=== PATIENT | male | born 1980 | race Caucasian/White ===

== ENCOUNTER → 2023-11-23 09:04 | Outpatient (BNVA) | payer OTHER, SELFPAY | PROVIDERS: Visit Provider Family Medicine | DX: F41.1 Generalized anxiety disorder (principal) | CPT/HCPCS: 80053; 80061; 84439; 84443; 85025 ==

== ENCOUNTER 2024-08-29 19:13 | Emergency (ER) | payer OTHER, SELFPAY ==
[2024-08-29 19:16] VITALS: BP 145/92; PULSE 118; RESP 18; TEMP 38.9; O2SAT 97; BMI 28.8
--- NOTE | 2024-08-29 19:38 | XRR_ITS ---
PROCEDURE INFORMATION: Exam: XR Chest Exam date and time: 08/29/2024 7:41 PM Age: 43 years old Clinical indication: Cough; Additional info: Cough, fever TECHNIQUE: Imaging protocol: Radiologic exam of the chest. Views: 1 view. COMPARISON: No relevant prior studies available. FINDINGS: Lungs: Unremarkable. No consolidation. Pleural spaces: Unremarkable. No pleural effusion. No pneumothorax. Heart/Mediastinum: Unremarkable. No cardiomegaly. Bones/joints: Unremarkable. XR/XR chest 1V portable [id number] IMPRESSION: No acute findings.
[2024-08-29 19:49] LABS: Hematocrit 40.3 % (37-53); Hemoglobin 13.40 g/dL (11.27-16.99); Mean Corpuscular HGB Conc 33.3 g/dL (30-55); Mean Corpuscular Hemoglobin 28.0 pg (27-33); Mean Corpuscular Volume 84.3 fl (82-101); Nucleated Red Blood Cells % 0 %; Platelet Count 259 10^3/cmm (157-399); Red Blood Count 4.78 10^6/uL (3.85-5.65); White Blood Count 3.85 10^3/uL (3.29-11.43)
[2024-08-29] MEDS: acetaminophen 1,000 MG/100 ML PIGGYBACK 400 MG IV (19:49)
--- NOTE | 2024-08-29 19:50 | ED_ITS ---
HPI - Fever 2 General: Chief Complaint: Fever Stated Complaint: fever body hurts cold chills bug bite on L buttox Time Seen by Provider: 08/29/24 19:33 History of Present Illness: 43-year-old man who presents emergency r oom with continued fevers. He was seen in urgent care and they thought maybe had a tick bite and they placed him on Bactrim 1 p.o. twice daily. This was about 3 days ago. He is continue to have fevers. He has a red area with a central black scar on his left buttock. This about 4 cm in diameter. This is not gotten any bigger. No necrosis. He does report he is had multiple tick bites. He has had some cough. He is febrile on presentation and tachycardic. Blood pressure stable. Related Data Previous Rx's ?Medication ?Instructions ?Recorded doxycycline monohydrate 100 mg 100 mg PO BID 10 days # 20 caps 08/29/24 capsule Allergies Allergy/AdvReac Type Severity Reaction Status Date / Time No Known Allergies Allergy Unverified 11/23/23 08:04 Review of Systems 2 Narrative: Constitutional symptoms: Negative except as documented in HPI. Skin symptoms: Negative except as documented in HPI. Eye symptoms: Negative except as documented in HPI. ENMT symptoms: Negative except as documented in HPI. Respiratory symptoms: Negative except as documented in HPI. Cardiovascular symptoms: Negative except as documented in HPI. Gastrointestinal symptoms: Negative except as documented in HPI. Genitourinary symptoms: Negative except as documented in HPI. Musculoskeletal symptoms: Negative except as documented in HPI. Neurologic symptoms: Negative except as documented in HPI. Psychiatric symptoms: Negative except as documented in HPI. Endocrine symptoms: Negative except as documented in HPI. PFSH ED 2 PFSH: Medical History (Updated 08/29/24 @ 20:26 by Dorys Zavala MD) RENETTA (generalized anxiety disorder) Family History (Updated 11/23/23 @ 08:08 by Janice Mesa LPN) Grandfather Diabetes Heart disease Cancer Renal cancer Aneurysm Grandfather No problems noted. Social History (Updated 11/23/23 @ 08:08 by Janice Mesa LPN) Smoking and tobacco/nicotine status: never used tobacco/nicotine Alcohol intake: current Alcohol intake frequency: few times a month Alcohol type: wine Substance/Drug Use: never Physical Exam 2 Narrative: EXAM NARRATIVE: General: Alert, no acute distress. Skin: Warm, dry. 5 cm raised warm erythematous area on the buttock with a central black eschar but no fluctuance. Head: Normocephalic, atraumatic. Neck: Supple, trachea midline. Eye: Extraocular movements are intact. Ears, nose, mouth and throat: mucosa moist. Cardiovascular: Regular, tachycardic, normal peripheral perfusion. Respiratory: Lungs are clear to auscultation, respirations are non-labored, breath sounds are equal, Symmetrical chest wall expansion. Gastrointestinal: Soft, Nontender, Non distended Musculoskeletal: Normal ROM, no deformity. Neurological: Alert and oriented, No focal neurological deficit observed. Psychiatric: Cooperative, appropriate mood & affect. Course 2 Vital Signs: Vital signs: Vital Signs Temperature 102.1 F H 08/29/24 19:16 Pulse Rate 109 H 08/29/24 19:58 Respiratory Rate 16 08/29/24 19:58 Blood Pressure 119/80 08/29/24 19:58 Pulse Oximetry 97 08/29/24 19:58 Oxygen Delivery Me thod Room Air 08/29/24 19:58 MDM - Fever Medical Decision Making Medical decision making: Differential diagnosis including but not limited to and based on the above HPI, review of systems and physical exam: Concern for sepsis. Take illness. Pneumonia. Urinary tract infection. Cellulitis. Orders placed to evaluate differential diagnosis based on the above differential, HPI and physical exam Chest x-ray: No acute process. No infiltrate. No pneumothorax. Films were interpreted by myself the emergency room provider and pending final radiology review. Lab Review: Laboratory results were reviewed and interpreted by myself the emergency room physician. Mild leukopenia. No anemia. Mild bump in creatinine at 1.2. Urinalysis negative for infection. I reviewed the patient's medical record. Reexamination: Discussed history at length. Patient does not appear septic. No lactic acidosis. No leukocytosis. With him having some leukopenia and a tach history this could be a tick bite and tick illness. Going to change him from Bactrim to doxycycline. We discussed at length symptoms to look for to return to the emergency room. Assessment and plan: Fever Cellulitis Possible tick illness ? IV fluids, IV Tylenol and IV doxycycline in the emergency room. - Discharged home - Discussed plan with patient. Answered any questions. - Evaluation and treatment of this problem were appropriate in the emergency setting. Lab Data 08/29/24 19:38 08/29/24 19:38 Laboratory Results WBC 3.85 10^3/uL (3.29-11.43) 08/29/24 19:38 RBC 4.78 10^6/uL (3.85-5.65) 08/29/24 19:38 Hgb 13.40 g/dL (11.27-16.99) 08/29/24 19:38 Hct 40.3 % (37-53) 08/29/24 19:38 MCV 84.3 fl (82-101) 08/29/24 19:38 MCH 28.0 pg (27-33) 08/29/24 19:38 MCHC 33.3 g/dL (30-55) 08/29/24 19:38 RDW 12.6 % (12.1-15.1) 08/29/24 19:38 Plt Count 259 10^3/cmm (157-399) 08/29/24 19:38 MPV 8.7 fL (7.4-10.4) 08/29/24 19:38 Neut % (Auto) 69.0 % 08/29/24 19:38 Lymph % (Auto) 19.2 % 08/29/24 19:38 Hendry % (Auto) 11.2 % 08/29/24 19:38 Eos % (Auto) 0.0 % 08/29/24 19:38 Baso % (Auto) 0.3 % 08/29/24 19:38 Neut # (Auto) 2.66 10^3/uL (1.8-7.7) 08/29/24 19:38 Lymph # (Auto) 0.7 10^3/uL (0.8-4.8) L 08/29/24 19:38 Hendry # (Auto) 0.4 10^3/uL (0.2-0.9) 08/29/24 19:38 Eos # (Auto) 0.0 10^3/uL (0.0-0.8) 08/29/24 19:38 Baso # (Auto) 0.0 10^3/uL (0.0-0.1) 08/29/24 19:38 Nucleated RBC % (auto) 0 % 08/29/24 19:38 Nucleated RBCs # 0.0 /100WBC 08/29/24 19:38 ESR 15 mm/hr (0-10) H 08/29/24 19:38 Sodium 137 mmol/L (136-145) 08/29/24 19:38 Potassium 4.0 mmol/L (3.5-5.1) 08/29/24 19:38 Chloride 101 mmol/L (98-107) 08/29/24 19:38 Carbon Dioxide 23 mmol/L (22-29) 08/29/24 19:38 Anion Gap 17.0 (5-19) 08/29/24 19:38 BUN 17 mg/dL (6-20) 08/29/24 19:38 Creatinine 1.2 mg/dL (0.7-1.2) 08/29/24 19:38 GFR Calculation 66.4 mL/min (90-130) L 08/29/24 19:38 Glucose 117 mg/dL (65-115) H 08/29/24 19:38 Calculated Osmolality 287 mOsm/kg (285-295) 08/29/24 19:38 Lactic Acid 1.2 mmol/L (0.5-2.2) 08/29/24 19:38 Calcium 8.9 mg/dL (8.5-10.5) 08/29/24 19:38 Total Bilirubin 0.3 mg/dL (0.15-1.2) 08/29/24 19:38 AST 26 U/L (0-40) 08/29/24 19:38 ALT 34 U/L (0-41) 08/29/24 19:38 Alkaline Phosphatase 59 U/L (40-130) 08/29/24 19:38 C-Reactive Protein 34.3 mg/L (0.0-4.9) H 08/29/24 19:38 Total Protein 6.9 g/dL (6.6-8.7) 08/29/24 19:38 Albumin 4.2 g/dL (3.5-5.2) 08/29/24 19:38 Globulin 2.7 g/dL (1.3-4.6) 08/29/24 19:38 Urine Color Yellow (Yellow) 08/29/24 19:35 Urine Appearance Clear (CLEAR) 08/29/24 19:35 Urine pH 6.5 (5-7) 08/29/24 19:35 Ur Specific Grayson 1.009 (1.005-1.030) 08/29/24 19:35 Urine Protein Negative (Negative) 08/29/24 19:35 Urine Glucose (UA) Negative (Normal) 08/29/24 19:35 Urine Ketones Negative (Negative) 08/29/24 19:35 Urine Blood Negative (Negative) 08/29/24 19:35 Urine Nitrate Negative (Negative) 08/29/24 19:35 Urine Bilirubin Negative (Negative) 08/29/24 19:35 Urine Urobilinogen 1.0 mg/dL (Negative) 08/29/24 19:35 Ur Leukocyte Esterase Negative (Negative) 08/29/24 19:35 Urine RBC 0-2 /hpf (0-2) 08/29/24 19:35 Urine WBC 0-5 /hpf (0-5) 08/29/24 19:35 Ur Squamous Epith Cells 0-5 /hpf (0-5) 08/29/24 19:35 Amorphous Sediment Not Reportable 08/29/24 19:35 Urine Bacteria None seen /hpf (NONE) 08/29/24 19:35 Hyaline Casts 0-4 /lpf H 08/29/24 19:35 All radiology interpretation(s) finalized by discharge Discharge Plan Discharge Patient Disposition: Home Clinical Impression: Fever, Cellulitis Condition: Stable Prescriptions: New doxycycline monohydrate 100 mg capsule 100 mg PO BID 10 Days Qty: 20 0RF Discharge Orders: Discharge ED (Routine); Ordered 08/29/24 Ordered By: Dorys Zavala Referrals: Ronn Avila MD [Primary Care Provider, Family Practice] Discharge Diet: Usual diet Discharge Activity: Increase activity as tolerated Patient Instructions: Tick Bite (ED), Opioid Safety, Pain Management, Patient Portal & Billy Instructions Activity Restrictions/Additional Instructions: Thank you for choosing [facility] for your healthcare needs today. You have been screened and evaluated and felt safe for discharge. Health conditions do change or evolve sometimes and as such it is important that you follow up with your Primary Doctor to be re checked, 3-5 days is a general good time frame for follow up. You are always welcome to return to the ED for re assessment if your symptoms are worsening or you have new concerns Print Language: Kittitian Coding Level of Care Code ED Maintenance Worker Swimming Pool for Melissa Correa
[2024-08-29 19:54] LABS: Glucose Urine UA Negative (Normal); Nitrate Urine Negative (Negative); Specific Gravity, Urine 1.009 (1.005-1.030)
[2024-08-29 19:58] VITALS: BP 119/80; PULSE 109; RESP 16; O2SAT 97
[2024-08-29 20:06] LABS: Lactic Sepsis W/Reflex 1.2 mmol/L (0.5-2.2)
[2024-08-29 20:07] LABS: Alanine Aminotransferase 34 U/L (0-41); Albumin Level 4.2 g/dL (3.5-5.2); Alkaline Phosphatase 59 U/L (40-130); Anion Gap 17.0 (5-19); Aspartate Amino Transferase 26 U/L (0-40); Blood Urea Nitrogen 17 mg/dL (6-20); Calcium 8.9 mg/dL (8.5-10.5); Carbon Dioxide 23 mmol/L (22-29); Chloride 101 mmol/L (98-107); Creatinine Clr Calc Pharmacy 88.2458; Globulin 2.7 g/dL (1.3-4.6); Glucose 117 mg/dL (65-115); Osmolality Calculated 287 mOsm/kg (285-295); Potassium 4.0 mmol/L (3.5-5.1); Sodium 137 mmol/L (136-145); Total Protein 6.9 g/dL (6.6-8.7)
[2024-08-29] MEDS: doxycycline 100 MG in sodium chloride 0.9% (plus) 100 ML IV (20:27)
[2024-08-29 20:28] VITALS: BP 114/73; PULSE 98; RESP 16; O2SAT 96
[2024-08-29 20:31] VITALS: TEMP 37.6
[2024-08-29 21:32] VITALS: BP 127/76; PULSE 89; RESP 16; O2SAT 96
== END 2024-08-29 21:31 | disposition home or self-care (01) ==
PROVIDERS: Emergency Provider Emergency Medicine; PCP Family Medicine
DX: R50.9 Fever, unspecified (principal); L03.317 Cellulitis of buttock
CPT/HCPCS: 36415; 71045; 80053; 81001; 83605; 85025; 85651; 86140; 87040; 96365; 96367; 99284; J0131; J3490; J7030